=== PATIENT | male | born 1980 | race Caucasian/White ===

== ENCOUNTER 2024-03-04 10:42 | Outpatient (REF) | payer BC, SELFPAY ==
[2024-03-04 20:21] LABS: Hemoglobin A1C 5.4 % (<5.7)
[2024-03-04 20:35] LABS: ALT 19 U/L (16-63); AST 22 U/L (15-37); Alkaline Phosphatase 70 U/L (46-116); Anion Gap 10.3 mmol/L (3-11); BUN 21 mg/dL (7-18); Bilirubin, Total 0.32 mg/dL (0.2-1.0); CO2 24.7 mmol/L (21.0-32.0); CREATININE 1.2 mg/dL (0.70-1.30); Calcium 9.4 mg/dL (8.5-10.1); Calculated LDL 140 mg/dL (<100); Chloride 107 mmol/L (98-107); Cholesterol 219 mg/dL (<200); Estimated GFR 77.43 (mL/min/1.73m2); Glucose 94 mg/dL (74-106); HDL Cholesterol 65 mg/dL (40-60); Potassium 4.4 mmol/L (3.5-5.1); Sodium 142 mmol/L (136-145); TSH (W/Ref FT4) 1.44 uIU/mL (0.36-3.74); Total Protein 7.8 g/dL (6.4-8.2); Triglyceride 71 mg/dL (<150)
[2024-03-07 10:39] LABS: HIV-1/2 Ag & Ab Screen Negative (Negative)
[2024-03-07 10:59] LABS: Hepatitis C Ab w Rflx HCV PCR Negative (Negative)
[2024-03-09 12:34] LABS: Testosterone, Total 348 ng/dL (240-950)
== END 2024-03-04 10:43 | disposition home or self-care (01) ==
LOC: NCHCN 10:42
PROVIDERS: PCP Physician Assistant; Visit Provider Physician Assistant
DX: R68.82 Decreased libido (principal); F41.9 Anxiety disorder, unspecified; Z11.4 Encounter for screening for human immunodeficiency virus [HIV]; Z13.220 Encounter for screening for lipoid disorders; Z13.1 Encounter for screening for diabetes mellitus; Z11.59 Encounter for screening for other viral diseases
CPT/HCPCS: 80053; 80061; 84403; 86803; 87389; 83036; 84443